=== PATIENT | male | born 1990 | race Caucasian/White ===

== ENCOUNTER 2023-09-27 07:55 | Outpatient (CLI) | payer OTHER, SELFPAY | END 2023-09-27 07:56 | disposition home or self-care (01) | PROVIDERS: PCP Family Medicine; Visit Provider Family Medicine | DX: Z13.220 Encounter for screening for lipoid disorders (principal); I10 Essential (primary) hypertension | CPT/HCPCS: 80053; 80061 ==

== ENCOUNTER 2024-11-10 10:00 | Outpatient (CLI) | payer BC, SELFPAY ==
--- NOTE | 2024-11-18 12:18 | W.PM.SLEEP ---
Sleep Study Details Details Interpreting Provider: Tana Date of Sleep Study: 11/10/24 Sleep Study Details: STUDY TYPE:? Home unattended ? BMI:? 35.8 ORDERING PROVIDER:? Tana INDICATION:? Concern about sleep apnea ? SLEEP SUMMARY:? 393 minutes monitored RESPIRATORY SUMMARY:? AHI 22.4 Low oxygen 80 9.6% of study oxygen less than 90% Snoring 84% PERIODIC LIMB MOVEMENTS OF SLEEP:? Not recorded CARDIAC:? Range 62-103, mean 73.4 beats per minute IMPRESSION:? Moderate obstructive sleep apnea RECOMMENDATION: Treatment options include CPAP, dental appliance and/or airway expansion surgery.
== END 2024-11-10 10:01 | disposition home or self-care (01) ==
LOC: SLEEP 10:01
PROVIDERS: PCP Family Medicine; Visit Provider Otolaryngology
DX: G47.33 Obstructive sleep apnea (adult) (pediatric) (principal)
CPT/HCPCS: 95806

== ENCOUNTER 2024-12-12 08:56 | Day surgery (SDC) | payer BC, SELFPAY ==
[2024-12-12] VITALS (12 sets, daily range): BP systolic 114–139; BP diastolic 70–95; PULSE 61–88; RESP 16; TEMP 36.4–37.2; O2SAT 90–99; BMI 36.6
[2024-12-12] MEDS: SODIUM CHLORIDE 0.9 % (FLUSH) 10 ML SYRINGE IVF (09:30)
[2024-12-12] MEDS: OXYMETAZOLINE 0.05% NASAL SPRAY 2 SPRAY NOSTRIL-B (09:30)
[2024-12-12] MEDS: LACTATED RINGERS 1000 ML 1,000 ML 100 ML IV (09:30)
--- NOTE | 2024-12-12 09:48 | P.ANES_ITS ---
Anesthesia Charges Start Date/Time Anesthesia Start Date: 12/12/24 Anesthesia Start Time: 11:44 Stop Date/Time Anesthesia Stop Date: 12/12/24 Anesthesia Stop Time: 12:32 Coding CPT Codes CPT Codes: ANESTH NOSE/SINUS SURGERY - 73484 ([id number]) P2 - PATIENT W/MILD SYST DISEASE, QK - DRAW END HAND 2-4 CNCRNT ANES PROC, QX - POSTPARTUM RN SVC W/ MD MED DIRECTION
--- NOTE | 2024-12-12 09:48 | W.ANESCHARGE ---
Anesthesia Charges Start Date/Time Anesthesia Start Date: 12/12/24 Anesthesia Start Time: 11:44 Stop Date/Time Anesthesia Stop Date: 12/12/24 Anesthesia Stop Time: 12:32 Coding CPT Codes CPT Codes: ANESTH NOSE/SINUS SURGERY - 84598 ([id number]) P2 - PATIENT W/MILD SYST DISEASE, QK - BUILDING SUPERINTENDENT 2-4 CNCRNT ANES PROC, QX - BOX SEALING MACHINE CATCHER SVC W/ MD MED DIRECTION
[2024-12-12] MEDS: COCAINE HCL 4 % 4 ML SOLUTION NOSTRIL-B (12:00)
[2024-12-12] MEDS: MUPIROCIN 1 GM PACKET 1 APPLIC TOPICAL (12:14)
[2024-12-12] MEDS: BUPIVACAINE 0.5%/EPINEPHRINE 0.9 MG (30.9 ML) INJECTION (12:14)
[2024-12-12] MEDS: AYR SALINE NASAL GEL 1 APPLIC NOSTRIL-B (12:14)
--- NOTE | 2024-12-12 12:21 | W.PM.ENTPROC ---
Procedure Note Date of procedure: 12/12/24 Procedure: Preop diagnosis nasal obstruction, deviated septum, right inferior turbinate hypertrophy Postoperative diagnosis same Procedure nasal septoplasty, submucous partial resection inferior turbinate right Under general trach anesthesia patient was prepped draped usual fashion nose decongested and injected. A right hemitransfixion incision was made. Bilateral anterior and posterior tunnels were created. A vertical incision was made through the cartilage with a Dilcia dissector the bone from the cartilage. Of the posterior deflected portions of septal bone resected a large piece trimmed returned to intraseptal space. Anteriorly there is a left premaxillary wing deformity that was partially removed with a chisel. The anterior septum that was then easily moved to midline. The hemitransfixion was closed with 2 4-0 chromic sutures. A stab incision was made in the anterior of the right inferior turbinate a tunnel created with a Dilcia dissector. The abel bone was outfractured a conservative anterior submucous resection performed. The Coblation was used for hemostasis and to cauterize intramurally along the inferior 10%. Silastic stents were secured with 3-0 nylon and Merocel packing coated in Bactroban was placed above the stents on each side. The patient procedure well was taken recovery in satisfactory condition. Blood loss 10 mL. Surgeon: Gm Fajardo MD
--- NOTE | 2024-12-12 12:36 | P.ANES_ITS ---
Anesthesia Charges Start Date/Time Anesthesia Start Date: 12/12/24 Anesthesia Start Time: 11:44 Stop Date/Time Anesthesia Stop Date: 12/12/24 Anesthesia Stop Time: 12:32 Coding CPT Codes CPT Codes: ANESTH NOSE/SINUS SURGERY - 00693 ([id number]) P2 - PATIENT W/MILD SYST DISEASE, QK - TRAVERTINE INSTALLER 2-4 CNCRNT ANES PROC, QX - YARD OPERATOR SVC W/ MD MED DIRECTION
--- NOTE | 2024-12-12 12:36 | W.ANESCHARGE ---
Anesthesia Charges Start Date/Time Anesthesia Start Date: 12/12/24 Anesthesia Start Time: 11:44 Stop Date/Time Anesthesia Stop Date: 12/12/24 Anesthesia Stop Time: 12:32 Coding CPT Codes CPT Codes: ANESTH NOSE/SINUS SURGERY - 76346 ([id number]) P2 - PATIENT W/MILD SYST DISEASE, QK - SHIELD INSTALLER 2-4 CNCRNT ANES PROC, QX - TIPPING MACHINE OPERATOR SVC W/ MD MED DIRECTION
--- NOTE | 2024-12-12 12:37 | SUR.PHASEI ---
Patient arrived to PACU awake and appropriate. Denies pain or nausea. Resting comfortably when not being talked to.
--- NOTE | 2024-12-12 12:57 | SUR.PHASEI ---
Patient awake and meets discharge criteria from PACU
[2024-12-12] MEDS: ACETAMINOPHEN 325 MG TABLET PO (13:30)
[2024-12-12] MEDS: IBUPROFEN 200 MG TABLET PO (13:30)
== END 2024-12-12 13:52 | disposition home or self-care (01) ==
LOC: OR 08:58
PROVIDERS: PCP Family Medicine; Visit Provider Otolaryngology
PROC: (CPT 30520; principal; 2024-12-12 10:30)
DX: J34.2 Deviated nasal septum (principal); J34.3 Hypertrophy of nasal turbinates; J34.89 Other specified disorders of nose and nasal sinuses
CPT/HCPCS: 30520; 30140; 00160; A9270; J0330; J1100; J2250; J2405; J2704; J2710; J3010; J7120